=== PATIENT | male | born 1970 | race Caucasian/White ===

== ENCOUNTER 2019-03-07 19:09 | Emergency (ER) | payer BC ==
--- NOTE | 2019-03-07 19:30 | EDM.PDOC ---
ED HPI GENERAL MEDICAL PROBLEM - General Chief Complaint: Back Pain or Injury Stated Complaint: INJURED LOWER BACK LEFT SIDE Time Seen by Provider: 03/07/19 19:19 Source of Information: Reports: Patient, RN Notes Reviewed History Limitations: Reports: No Limitations - History of Present Illness INITIAL COMMENTS - FREE TEXT/NARRATIVE: Patient is a 48-year-old male presents to the ED for evaluation of lower left back pain. The patient states that he had a prior injury to this back roughly at [place] time. He states he never sought treatment for this at this time. He states on Tuesday however he was cleaning up his work truck and picked up a generator, when he felt the pain start in his back. He states that it was okay Tuesday and Tuesday, however he could barely get out of bed this morning, and had to have his help him put on his socks as it hurts to bend over. The patient states he did go to work and the back pain seemed to be okay during the day, however tonight it is been excruciating again. The patient states that it is in his left lower back with some radiation into his left hip and left upper thigh. He has been taking some Aleve and Excedrin with little to no relief. He would rate his pain at an 8 out of 10 today. Left Lower Back Pain Score (Numeric/FACES): 8 - Related Data Allergies Allergy/AdvReac Type Severity Reaction Status Date / Time No Known Allergies Allergy Verified 03/07/19 19:24 Home Meds: Home Meds Orphenadrine [Norflex] 100 mg PO BID PRN #20 tab 03/07/19 [Rx] predniSONE [Deltasone] 20 mg PO ASDIRECTED #15 tablet 03/07/19 [Rx] Past Medical History HEENT History: Reports: Impaired Vision, Other (See Below) Other HEENT History: Wears contacts, septoplasty d/to deviated septum. Cardiovascular History: Reports: Hypertension Other Cardiovascular History: "slight high BP" Gastrointestinal History: Reports: None Genitourinary History: Reports: None Musculoskeletal History: Reports: Fracture Other Musculoskeletal History: HX fractured ribs Neurological History: Reports: None Psychiatric History: Reports: None Endocrine/Metabolic History: Reports: None Hematologic History: Reports: None Immunologic History: Reports: None Oncologic (Cancer) History: Reports: None Dermatologic History: Reports: None - Infectious Disease History Infectious Disease History: Reports: None - Past Surgical History Head Surgeries/Procedures: Reports: None HEENT Surgical History: Reports: Adenoidectomy, Tonsillectomy GI Surgical History: Reports: Cholecystectomy Musculoskeletal Surgical History: Reports: None Social & Family History - Family History Family Medical History: Noncontributory - Tobacco Use Smoking Status *Q: Current Every Day Smoker Years of Tobacco use: 36 Packs/Tins Daily: 1 - Caffeine Use Caffeine Use: Reports: Coffee - Recreational Drug Use Recreational Drug Use: No ED ROS GENERAL - Review of Systems Review Of Systems: See Below Constitutional: Reports: No Symptoms HEENT: Reports: No Symptoms Respiratory: Reports: No Symptoms Cardiovascular: Reports: No Symptoms Endocrine: Reports: No Symptoms GI/Abdominal: Reports: No Symptoms : Reports: No Symptoms Musculoskeletal: Reports: Back Pain (left lower) Skin: Reports: No Symptoms Neurological: Reports: No Symptoms Psychiatric: Reports: No Symptoms Hematologic/Lymphatic: Reports: No Symptoms ED EXAM,LOWER BACK PAIN/INJURY - Physical Exam Exam: See Below Exam Limited By: No Limitations General Appearance: Alert, WD/WN, No Apparent Distress Eye Exam: Bilateral Eye: Normal Inspection Head: Atraumatic Neck: Normal Inspection Respiratory/Chest: No Respiratory Distress, Lungs Clear, Normal Breath Sounds, No Accessory Muscle Use, Chest Non-Tender Cardiovascular: Normal Peripheral Pulses, Regular Rate, Rhythm, No Murmur GI/Abdominal: Normal Bowel Sounds, Soft, Non-Tender, No Distention, No Mass Back Exam: Normal Inspection, Decreased Range of Motion (d/t pain). No: CVA Tenderness (L), CVA Tenderness (R) Extremities: Normal Inspection, Normal Range of Motion, Normal Capillary Refill Neurological: Alert, Normal Mood/Affect, Normal Dorsiflexion, Normal Plantar Flexion, Normal Gait, Normal Reflexes, No Motor/Sensory Deficits, Oriented x 3, Straight Leg Raise (L). No: Straight Leg Raise (R), Saddle Anesthesia Psychiatric: Normal Affect, Normal Mood Skin Exam: Warm, Dry, Intact, Normal Color, No Rash Course - Vital Signs Last Recorded V/S: Last Vital Signs Temp 98.8 F 03/07/19 19:19 Pulse 84 03/07/19 19:19 Resp 20 03/07/19 19:19 BP 149/102 H 03/07/19 19:19 Pulse Ox 98 03/07/19 19:19 - Orders/Labs/Meds Meds: Medications Discontinued Medications Generic Name Dose Route Start Last Admin Trade Name Nehal PRN Reason Stop Dose Admin Hydrocodone Bitart/Acetaminophen 2 tab 03/07/19 19:52 03/07/19 19:58 Marion 325-5 Mg PO 03/07/19 19:53 2 tab ONETIME ONE Administration Dexamethasone 10 mg 03/07/19 19:51 03/07/19 19:59 Dexamethasone IM 03/07/19 19:52 10 mg ONETIME ONE Administration Orphenadrine Citrate 100 mg 03/07/19 19:51 03/07/19 19:58 Norflex PO 03/07/19 19:52 100 mg BEDTIME ONE Administration - Re-Assessments/Exams Free Text/Narrative Re-Assessment/Exam: 03/07/19 20:02 Patient presents to the ED for the evaluation of left lower back pain. This is suspicious for a sciatic problem or any discogenic nerve pain in etiology. I have provided the patient with 10 mg IM dexamethasone, 100 mg PO Norflex, and 2 tabs of Marion 03/09/25 to take home for rest tonight. The patient was made aware of that he should obtain a primary care provider and seek further management for imaging and further management of his back pain over the road. Patient is okay with this plan. Departure - Departure Time of Disposition: 20:05 Disposition: Home, Self-Care 01 Condition: Fair Clinical Impression: Low back pain radiating to left leg - Discharge Information *PRESCRIPTION DRUG MONITORING PROGRAM REVIEWED*: No *COPY OF PRESCRIPTION DRUG MONITORING REPORT IN PATIENT BELLO: No Prescriptions: Orphenadrine [Norflex] 100 mg PO BID PRN #20 tab PRN Reason: Spasms predniSONE [Deltasone] 20 mg PO ASDIRECTED #15 tablet Instructions: Back Injury Prevention, [id number], Back Exercises, Easy-to- Read, Chronic Back Pain, [id number] Referrals: PCP,None [Primary Care Provider] - Forms: ED Department Discharge Additional Instructions: You have been evaluated in the ED for your left lower back pain. Please use ice as tolerated to the affected area. You may take 1-2 tablets of Aleve every 12 hours or ibuprofen 600mg q6 hrs for pain relief. Please do so until you have a tolerable level of pain with activity. Do not exceed 3200mg ibuprofen in a 24 hour time period. Please take the prednisone as directed, and take the Norflex 1 tab, 2 times daily for muscle spasms as needed. These medications have been electronically prescribed to the [place] pharmacy in the [facility] located near [facility]. Recommend that you set up with a primary care provider for continuing and further management of your back pain. Our clinic number is [phone] any family practice provider will be able to provide you with the services. Please return to ED if your symptoms should change or worsen.
[2019-03-07] MEDS ORDERED: Dexamethasone 10 MG/ML SDV IM ONE (19:51)
[2019-03-07] MEDS ORDERED: Orphenadrine 100 MG Tab.ER PO ONE (19:51)
[2019-03-07] MEDS ORDERED: Acetaminophen/HYDROcodone 325-5 MG Tab PO ONE (19:52)
== END 2019-03-07 20:24 | disposition home or self-care (01) ==
LOC: JD.ED 19:09
DX: M54.5 Low back pain (principal); F17.210 Nicotine dependence, cigarettes, uncomplicated; I10 Essential (primary) hypertension; Z79.899 Other long term (current) drug therapy
CPT/HCPCS: 96372; 99283; A9270; J1100

== ENCOUNTER 2019-03-20 10:30 | Emergency (ER) | payer OTHER, BC ==
[2019-03-20] MEDS ORDERED: Ketorolac 60 MG/2 ML SDV IM ONE (11:31)
[2019-03-20] MEDS ORDERED: Acetaminophen/HYDROcodone 325-10 MG Tab PO ONE (11:32)
--- NOTE | 2019-03-20 12:32 | EDM.PDOC ---
ED HPI GENERAL MEDICAL PROBLEM - General Chief Complaint: Back Pain or Injury Stated Complaint: BACK PAIN Time Seen by Provider: 03/20/19 11:11 Source of Information: Reports: Patient History Limitations: Reports: No Limitations - History of Present Illness INITIAL COMMENTS - FREE TEXT/NARRATIVE: 48 y/o male presents to ER with cc lower back pain for the past 2 weeks. He reports he "moved a generator at work and hurt is back." He states he is seeing occupational health and is suppose to have a MRI in the next few days. He states over the past 2 days his pain has gotten worse. He reports it is difficult for him to get out of bed or his care. He states he has been taking Flexeril 10 mg daily which doesn't seem to help. He denies any incontinence of bowel or bladder. He reports the pain is more on his left side and shots down his left leg. Nothing makes it better. It is worse with movement. He is accompanied by his . Onset Date: 03/07/19 Onset Time: 12:00 Duration: Getting Worse Location: Reports: Back Quality: Reports: Burning Severity: Mild Improves with: Reports: None Worsens with: Reports: None Context: Reports: Lifting Associated Symptoms: Reports: No Other Symptoms, Other (denies in continence of bowel or bladder) - Related Data Allergies Allergy/AdvReac Type Severity Reaction Status Date / Time No Known Allergies Allergy Verified 03/20/19 11:02 Home Meds: Home Meds Orphenadrine [Norflex] 100 mg PO BID PRN #20 tab 03/07/19 [Rx] predniSONE [Deltasone] 20 mg PO ASDIRECTED #15 tablet 03/07/19 [Rx] Acetaminophen with Codeine [Tylenol with Codeine #3 Tablet] 1 each PO Q6HR PRN 3 Days #12 tablet 03/20/19 [Rx] Ketorolac [Toradol] 10 mg PO Q6H PRN 4 Days #16 tab 03/20/19 [Rx] Past Medical History HEENT History: Reports: Impaired Vision, Other (See Below) Other HEENT History: Wears contacts, septoplasty d/to deviated septum. Cardiovascular History: Reports: Hypertension Other Cardiovascular History: "slight high BP" Gastrointestinal History: Reports: None Genitourinary History: Reports: None Musculoskeletal History: Reports: Back Pain, Chronic, Fracture Other Musculoskeletal History: HX fractured ribs Neurological History: Reports: None Psychiatric History: Reports: None Endocrine/Metabolic History: Reports: None Hematologic History: Reports: None Immunologic History: Reports: None Oncologic (Cancer) History: Reports: None Dermatologic History: Reports: None - Infectious Disease History Infectious Disease History: Reports: None - Past Surgical History Head Surgeries/Procedures: Reports: None HEENT Surgical History: Reports: Adenoidectomy, Tonsillectomy GI Surgical History: Reports: Cholecystectomy Musculoskeletal Surgical History: Reports: None Social & Family History - Family History Family Medical History: Noncontributory - Tobacco Use Smoking Status *Q: Current Every Day Smoker Years of Tobacco use: 36 Packs/Tins Daily: 1 - Caffeine Use Caffeine Use: Reports: Coffee, Soda - Recreational Drug Use Recreational Drug Use: No ED ROS GENERAL - Review of Systems Review Of Systems: See Below Constitutional: Denies: Fever, Chills HEENT: Reports: No Symptoms Respiratory: Denies: Shortness of Breath Cardiovascular: Denies: Chest Pain Endocrine: Reports: No Symptoms GI/Abdominal: Reports: No Symptoms : Reports: No Symptoms Musculoskeletal: Reports: Back Pain Skin: Reports: No Symptoms Neurological: Denies: Paresthesia, Weakness Psychiatric: Reports: No Symptoms Hematologic/Lymphatic: Reports: No Symptoms Immunologic: Reports: No Symptoms ED EXAM,LOWER BACK PAIN/INJURY - Physical Exam Exam: See Below Exam Limited By: No Limitations General Appearance: Alert, WD/WN, No Apparent Distress Neck: Normal Inspection, Supple, Non-Tender, Full Range of Motion Respiratory/Chest: No Respiratory Distress, Lungs Clear, Normal Breath Sounds, No Accessory Muscle Use, Chest Non-Tender Cardiovascular: Normal Peripheral Pulses, Regular Rate, Rhythm, No Edema, No Gallop, No JVD, No Murmur, No Rub GI/Abdominal: Normal Bowel Sounds, Soft, Non-Tender, No Organomegaly, No Distention, No Abnormal Bruit, No Mass, Pelvis Stable Back Exam: Decreased Range of Motion, Other (+ left leg straight test at 35*) Extremities: Normal Inspection, Normal Range of Motion, Non-Tender, No Pedal Edema, Normal Capillary Refill Neurological: Alert, Normal Mood/Affect, Normal Dorsiflexion, CN II-XII Intact, Normal Plantar Flexion, Normal Gait, No Motor/Sensory Deficits, Oriented x 3 Psychiatric: Normal Affect, Normal Mood Skin Exam: Warm, Dry, Intact, Normal Color, No Rash Lymphatic: No Adenopathy Course - Vital Signs Last Recorded V/S: Last Vital Signs Temp 97.1 F 03/20/19 10:58 Pulse 82 03/20/19 10:58 Resp 16 03/20/19 10:58 BP 145/94 H 03/20/19 10:58 Pulse Ox 96 03/20/19 10:58 - Orders/Labs/Meds Meds: Medications Discontinued Medications Generic Name Dose Route Start Last Admin Trade Name Freq PRN Reason Stop Dose Admin Hydrocodone Bitart/Acetaminophen 1 tab 03/20/19 11:32 03/20/19 11:43 Hackberry 325-10 Mg PO 03/20/19 11:33 1 tab ONETIME ONE Administration Ketorolac Tromethamine 60 mg 03/20/19 11:31 03/20/19 11:43 Toradol IM 03/20/19 11:32 60 mg ONETIME ONE Administration - Re-Assessments/Exams Free Text/Narrative Re-Assessment/Exam: 03/20/19 12:33 Reports relief after receiving Toradol and Hackberry. I will discharge home with Toradol and Tylenol # 3 for pain. I instructed him no to take Tylenol # [address], [address] or operate machinery. Instructed to follow up with occupational health for MRI and further treatment. Instructed to return to the ER for any new or acute worsening symptoms. Patient verbalized understanding and is comfortable with plan for discharge. He is stable at time of discharge. Departure - Departure Time of Disposition: 12:35 Disposition: Home, Self-Care 01 Condition: Good Clinical Impression: Sciatica, Low back pain radiating to left leg - Discharge Information *PRESCRIPTION DRUG MONITORING PROGRAM REVIEWED*: Yes *COPY OF PRESCRIPTION DRUG MONITORING REPORT IN PATIENT BELLO: Not Applicable Prescriptions: Acetaminophen with Codeine [Tylenol with Codeine #3 Tablet] 1 each PO Q6HR PRN 3 Days #12 tablet PRN Reason: back pain Ketorolac [Toradol] 10 mg PO Q6H PRN 4 Days #16 tab PRN Reason: back pain Instructions: Muscle Strain, [id number], Sciatica Referrals: PCP,None [Primary Care Provider] - Additional Instructions: You have been diagnosis with lower back pain and sciatica pain. Take Tylenol # 3 as needed for pain. Do not take this medication and drink, drive or operate machinery. Follow up with your occupational health for further evaluation and treatment. Return to the ER for any new or acute worsening symptoms.
== END 2019-03-20 12:58 | disposition home or self-care (01) ==
LOC: JD.ED 10:30
DX: M54.42 Lumbago with sciatica, left side (principal); F17.210 Nicotine dependence, cigarettes, uncomplicated; I10 Essential (primary) hypertension
CPT/HCPCS: 96372; 99283; A9270; J1885